=== PATIENT | female | born 1970 | race American Indian/Alaskan Native ===

== ENCOUNTER 2023-06-17 09:16 | Emergency (ER) | payer OTHER ==
[2023-06-17 09:26] VITALS: BP 132/69; PULSE 82; RESP 16; TEMP 98.7; BMI 29.2
[2023-06-17] MEDS ORDERED: predniSONE 20 MG TABLET (UD) ONE (10:22)
[2023-06-17] MEDS ORDERED: ALBUTEROL SO4 HFA INHALER IH ONE (10:22)
[2023-06-17] MEDS ORDERED: guaiFENesin/D-METHORPHAN HB 10 ML UNIT-DOSE CUPS ONE (10:22)
[2023-06-17] MEDS: predniSONE 20 MG TABLET (UD) PO ONE (10:28)
[2023-06-17] MEDS: guaiFENesin/D-METHORPHAN HB 10 ML UNIT-DOSE CUPS PO ONE (10:28)
[2023-06-17] MEDS: ALBUTEROL SO4 HFA INHALER IH ONE (10:28)
== END 2023-06-17 11:07 | disposition home or self-care (01) ==
LOC: JERFT 09:16
DX: J40 Bronchitis, not specified as acute or chronic (principal); R09.82 Postnasal drip; R05.9 Cough, unspecified; R07.0 Pain in throat; R09.89 Other specified symptoms and signs involving the circulatory and respiratory systems; Z20.822 Contact with and (suspected) exposure to COVID-19
CPT/HCPCS: 0241U-QW; 71046-TC-FY; 99284-25